=== PATIENT | female | born 1990 | race Caucasian/White ===

== ENCOUNTER 2023-12-09 11:20 | Outpatient (REF) | payer OTHER, SELFPAY ==
--- NOTE | ~2023-12-09 | US_ITS ---
EXAMINATION: US PELVIS CLINICAL INFORMATION: Malpositioned IUD, last menstrual period December 01, 2023, the patient declined transvaginal ultrasound imaging. COMPARISON: None available. TECHNIQUE: Ultrasound of the pelvis is performed using both transabdominal and transvaginal transducers along with Doppler. Patient declined transvaginal ultrasound imaging. FINDINGS: The uterus measures 7.8 x 3.3 x 4.1 cm and is anteverted. No discrete fibroids are appreciated. IUD in place within the endometrial cavity, approximately 0.6 cm from the fundal aspect of the endometrium. Endometrial thickness of 8 mm. Limited visualization as only transabdominal ultrasound images were obtained. Right ovary measures 2.5 x 1.7 x 2.0 cm, volume 4.5 mL, and is unremarkable. Left ovary measures 3.1 x 2.4 x 2.6 cm, volume 10.4 mm. Left ovarian 1.9 cm cyst is likely physiologic/follicle. There is no specific indication for additional imaging at this time. US/US pelvic and transvaginal IMPRESSION: 1. IUD in place within the endometrial cavity, approximately 0.6 cm from the fundal aspect of the endometrium. 2. Endometrial thickness of 8 mm.
== END 2023-12-09 11:21 | disposition home or self-care (01) ==
LOC: HO.US 11:20
PROVIDERS: Visit Provider Family Medicine
DX: T83.32XA Displacement of intrauterine contraceptive device, initial encounter (principal)
CPT/HCPCS: 76830; 76856